=== PATIENT | female | born 1965 | race Caucasian/White ===

== ENCOUNTER → 2018-03-30 17:08 | Outpatient (CLI) | payer MEDICARE, MEDICAID ==
[2015-05-01 08:00] VITALS: BMI 27.8
[~2018-03-30 17:08] MED LIST: ABILIFY10 MG PO; ADDERALL 20 MG20 M1 PO; CYCLOBENZAPRINE10 MG PO; GLUCOPHAGE1000 MG; HYDROCHLOROTH12.5 M1 PO; HYDROCODONE-APA1 TAB PO; IPRAT-ALBUT 0.5-3 ML UPD; LASIX20 MG PO; LIPITOR40 MG PO; LYRICA25 MG PO; METOPROLOL TART50 MG PO; MOBIC7.5 MG PO; NEURONTIN 300300 MG PO; NITROSTAT0.4 MG; NITROSTAT0.4 MG SL; PACERONE200 MG PO; POTASSIUM CHLO10 ME1 PO; PRILOSEC20 MG PO; PROMETRIUM200 MG PO; PROZAC40 MG PO; ROBAXIN-750750 MG PO; SPIRIVA18 MCG INH; SYNTHROID100 MCG PO; ULTRAM50 MG PO; VICTOZA0.6 MG/0.1 SQ; ZESTRIL10 MG PO; ZYLOPRIM100 MG PO
== END | disposition home or self-care (01) ==
LOC: D.MAMMO 12-19 16:00
DX: Z12.31 Encounter for screening mammogram for malignant neoplasm of breast (principal)

== ENCOUNTER 2018-05-14 08:00 | Outpatient (CLI) | payer MEDICARE, MEDICAID ==
[2015-05-01 08:00] VITALS: BMI 27.8
== END 2018-05-14 09:00 | disposition home or self-care (01) ==
LOC: D.MAMMO 08:00
DX: R92.8 Other abnormal and inconclusive findings on diagnostic imaging of breast (principal)

== ENCOUNTER → 2019-05-22 08:26 | Outpatient (CLI) | payer MEDICARE, MEDICAID ==
[2015-05-01 08:00] VITALS: BMI 27.8
== END | disposition home or self-care (01) ==
LOC: D.CT 08:26
PROVIDERS: ATTEND Family Medicine
DX: R91.8 Other nonspecific abnormal finding of lung field (principal); E11.9 Type 2 diabetes mellitus without complications; E03.9 Hypothyroidism, unspecified; E78.2 Mixed hyperlipidemia; I10 Essential (primary) hypertension; I48.91 Unspecified atrial fibrillation; J44.9 Chronic obstructive pulmonary disease, unspecified; R21 Rash and other nonspecific skin eruption; L03.211 Cellulitis of face

== ENCOUNTER → 2020-08-31 12:26 | Outpatient (CLI) | payer MEDICARE, MEDICAID ==
[2015-05-01 08:00] VITALS: BMI 27.8
== END | disposition home or self-care (01) ==
LOC: D.LAB 12:26
PROVIDERS: ATTEND Internal Medicine Pulmonary Disease
DX: J44.9 Chronic obstructive pulmonary disease, unspecified (principal); Z11.52 Encounter for screening for COVID-19

== ENCOUNTER → 2020-09-04 13:50 | Outpatient (CLI) | payer MEDICARE, MEDICAID ==
[2015-05-01 08:00] VITALS: BMI 27.8
== END | disposition home or self-care (01) ==
LOC: D.CT 13:50 → D.RT 15:00
PROVIDERS: ATTEND Internal Medicine Pulmonary Disease
DX: J44.9 Chronic obstructive pulmonary disease, unspecified (principal); R91.8 Other nonspecific abnormal finding of lung field; Z11.52 Encounter for screening for COVID-19